=== PATIENT | female | born 1985 | race Caucasian/White ===

== ENCOUNTER 2016-09-09 09:00 | Emergency (ER) | payer MEDICAID ==
[2016-09-09 09:19] VITALS: RESP 18; TEMP 98; O2SAT 97
[2016-09-09] MEDS ORDERED: ONDANSETRON 4 MG/2 ML VIAL ONE (09:32)
[2016-09-09] MEDS ORDERED: ONDANSETRON 4 MG/2 ML VIAL IVP ONE (09:37)
[2016-09-09] MEDS ORDERED: NS 1,000 ML IV ONE ×2 (09:37→10:24)
[2016-09-09 10:07] LABS: % IMMATURE GRANULYOCYTES 0.3 % (0.0-1.1); ABSOLUTE IMMATURE GRANULOCYTES 0.02 10^3/uL (0.00-0.10); ADD DIFF? NO; ADD MORPH? NO; ADD SCAN? NO; ATYPICAL LYMPHOCYTE FLAG 30 (0-99); FRAGMENT RBC FLAG 0 (0-99); HEMATOCRIT 43.4 % (38.0-47.0); HEMOGLOBIN 15.3 g/dL (12.6-16.3); LEFT SHIFT FLG 10 (0-99); LIPEMIA HEMOLYSIS FLAG 90 (0-99); MEAN CELL HEMOGLOBIN 32.4 pg (27.9-34.1); MEAN CELL HEMOGLOBIN CONCENTR. 35.3 g/dL (32.4-36.7); MEAN CELL VOLUME 91.9 fL (81.5-99.8); MEAN PLATELET VOLUME 10.7 fL (8.7-11.7); PLATELET CLUMPS FLAG 0 (0-99); PLATELET COUNT 162 10^3/uL (150-400); RED BLOOD CELL COUNT 4.72 10^6/uL (4.18-5.33); RED CELL DISTRIBUTION WIDTH 12.3 % (11.5-15.2)
[2016-09-09 10:19] LABS: ALANINE AMINOTRANSFERASE 41 IU/L (9-52); ALBUMIN 4.8 g/dL (3.5-5.0); ALKALINE PHOSPHATASE 76 IU/L (38-126); ANION GAP 14 mEq/L (8-16); ASPARTATE AMINOTRANSFERASE 36 IU/L (14-46); BILIRUBIN,TOTAL 1.1 mg/dL (0.1-1.4); CALCIUM 9.8 mg/dL (8.5-10.4); CARBON DIOXIDE 24 mEq/l (22-31); CHLORIDE 98 mEq/L (97-110); CREATININE 0.6 mg/dL (0.6-1.0); GLOMERULAR FILTRATION RATE > 60; GLUCOSE 86 mg/dL (70-100); POTASSIUM 3.8 mEq/L (3.5-5.2); SODIUM 136 mEq/L (134-144); TOTAL PROTEIN 8.3 g/dL (6.3-8.2)
--- NOTE | 2016-09-09 10:24 | UCPHY ---
H & P Time Seen by Provider: 09/09/16 09:07 Patient Type: Established HPI/ROS: 31-year-old female presents complaining of cough nasal congestion, headaches times 4-5 days, she also complains of diarrhea and vomiting for the last 1 day. She smokes daily however has not smoked for the last 5 days. Review of systems As per HPI-cold symptoms, cough, vomiting, diarrhea General no fever no chills no weakness HEENT no eye pain no eye discharge. No eye redness, no sore throat Respiratory positive cough, no shortness of breath Cardiac no chest pain, no peripheral edema GI no abdominal pain, positive diarrhea positive nausea positive vomiting no flank pain, no hematuria, no dysuria Musculoskeletal no myalgias, no joint pain Heme no easy bruising, no easy bleeding Endo no polyuria, no polydipsia Skin no rashes, no pruritus Neuro no syncope, no dizziness, no headaches Psych is no suicidal ideation, no homicidal ideation Past Medical/Surgical History: Migraines ? Seizure disorder Tobacco abuse disorder Social History: Denies drug use, alcohol socially Smoking Status: Current every day smoker Physical Exam: 31-year-old female alert and oriented no acute distress nontoxic appearance afebrile Coarse cough, no wheezing HEENT atraumatic normocephalic, extraocular muscles intact, anicteric Oropharynx negative for erythema negative exudate, tolerating her own secretions Neck supple no meningismus Lungs clear to auscultation bilaterally Heart regular rate and rhythm without murmur rub or gallop Abdomen nondistended normoactive bowel sounds soft nontender Back no CVA tenderness, no step-offs, no spinal tenderness Extremities no cyanosis clubbing or edema Neuro alert and oriented, no focal deficits Constitutional: Initial Vital Signs Temperature (C) 36.6 C 09/09/16 09:16 Heart Rate 88 09/09/16 09:16 Respiratory Rate 18 09/09/16 09:16 Blood Pressure 184/108 H 09/09/16 09:16 O2 Sat (%) 97 09/09/16 09:16 O2 Delivery Mode Room Air Allergies/Adverse Reactions: No Known Allergies Allergy (Unverified 04/09/16 15:56) Home Medications: Medication Instructions Recorded AZITHROMYCIN [Z-PACK] 250 mg PO DAILY #6 tab 09/09/16 Benzonatate [Tessalon Pearles (RX)] 200 mg PO TID PRN #30 cap 09/09/16 Ondansetron Odt [Zofran Odt 4 mg 4 mg PO Q4 PRN #10 tab 09/09/16 (*)] traZODone 09/09/16 Medical Decision Making ED Course/Re-evaluation: Patient seen and evaluated for cough cold nausea vomiting diarrhea. Chest x-ray negative Labs within normal limits Patient given IV fluids and ondansetron with marked relief of her nausea able to tolerate p.o. Differential diagnosis URI, bronchitis, pneumonia, gastroenteritis, viral syndrome Impression Bronchitis Gastroenteritis Dehydration Plan Discharge home with prescription for azithromycin, Tessalon Perles, ondansetron Follow up with primary care physician - Data Points Laboratory Results: Laboratory Results 09/09/16 09:30 09/09/16 09:30 09/09/16 09/09/16 10:45 09:30 WBC 8.00 10^3/uL (3.80-9.50) RBC 4.72 10^6/uL (4.18-5.33) Hgb 15.3 g/dL (12.6-16.3) Hct 43.4 % (38.0-47.0) MCV 91.9 fL (81.5-99.8) MCH 32.4 pg (27.9-34.1) MCHC 35.3 g/dL (32.4-36.7) RDW 12.3 % (11.5-15.2) Plt Count 162 10^3/uL (150-400) MPV 10.7 fL (8.7-11.7) Neut % (Auto) 80.3 H % (39.3-74.2) Lymph % (Auto) 10.9 L % (15.0-45.0) [place] % (Auto) 7.1 % (4.5-13.0) Eos % (Auto) 1.0 % (0.6-7.6) Baso % (Auto) 0.4 % (0.3-1.7) Nucleat RBC Rel Count 0.0 % (0.0-0.2) Absolute Neuts (auto) 6.43 10^3/uL (1.70-6.50) Absolute Lymphs (auto) 0.87 L 10^3/uL (1.00-3.00) Absolute Monos (auto) 0.57 10^3/uL (0.30-0.80) Absolute Eos (auto) 0.08 10^3/uL (0.03-0.40) Absolute Basos (auto) 0.03 10^3/uL (0.02-0.10) Absolute Nucleated RBC 0.00 10^3/uL (0-0.01) Immature Gran % 0.3 % (0.0-1.1) Immature Gran # 0.02 10^3/uL (0.00-0.10) Sodium 136 mEq/L (134-144) Potassium 3.8 mEq/L (3.5-5.2) Chloride 98 mEq/L (97-110) Carbon Dioxide 24 mEq/l (22-31) Anion Gap 14 mEq/L (8-16) BUN 9 mg/dL (7-23) Creatinine 0.6 mg/dL (0.6-1.0) Estimated GFR > 60 Glucose 86 mg/dL (70-100) Calcium 9.8 mg/dL (8.5-10.4) Total Bilirubin 1.1 mg/dL (0.1-1.4) AST 36 IU/L (14-46) ALT 41 IU/L (9-52) Alkaline Phosphatase 76 IU/L (38-126) Total Protein 8.3 H g/dL (6.3-8.2) Albumin 4.8 g/dL (3.5-5.0) Urine Color YELLOW Urine Appearance CLEAR Urine pH 6.5 (5.0-7.5) Ur Specific [place] 1.010 (1.002-1.030) Urine Protein NEGATIVE (NEGATIVE) Urine Ketones 2+ H (NEGATIVE) Urine Blood 2+ H (NEGATIVE) Urine Nitrate NEGATIVE (NEGATIVE) Urine Bilirubin NEGATIVE (NEGATIVE) Urine Urobilinogen 0.2 EU (0.2-1.0) Ur Leukocyte Esterase NEGATIVE (NEGATIVE) Urine RBC 3-5 H /hpf (0-3) Urine WBC 5-10 H /hpf (0-3) Ur Epithelial Cells 2+ H /lpf (NONE-1+) Urine Bacteria TRACE H /hpf (NONE SEEN) Urine Mucus 2+ H /lpf (NONE-1+) Urine Yeast OCCASIONAL H /hpf (NONE SEEN) Ur Culture Indicated? INDICATED H (NI) Urine Glucose NEGATIVE (NEGATIVE) Urine Test NEGATIVE Medications Given: Discontinued Medications Sodium Chloride (Ns) 1,000 mls @ 0 mls/hr IV ONCE ONE PRN Reason: Wide Open Stop: 09/09/16 09:38 Last Admin: 09/09/16 10:09 Dose: 1,000 mls Sodium Chloride (Ns) 1,000 mls @ 0 mls/hr IV ONCE ONE PRN Reason: Wide Open Stop: 09/09/16 10:25 Last Admin: 09/09/16 10:48 Dose: 1,000 mls Ondansetron HCl (Zofran) 4 mg IVP EDNOW ONE Stop: 09/09/16 09:38 Last Admin: 09/09/16 10:10 Dose: 4 mg Departure - Departure Disposition: Home, Routine, Self-Care Clinical Impression: Bronchitis, Gastroenteritis, Dehydration Condition: Good Instructions: Acute Bronchitis (ED), Dehydration (ED), Gastroenteritis (ED) Referrals: hCina LUGO [Primary Care Provider] - As per Instructions [facility] [Provider Group] - As per Instructions Stand Alone Forms: Work Excuse Prescriptions: Benzonatate [Tessalon Pearles (RX)] 200 mg PO TID PRN #30 cap PRN Reason: Cough, Severe AZITHROMYCIN [Z-PACK] 250 mg PO DAILY #6 tab Ondansetron Odt [Zofran Odt 4 mg (*)] 4 mg PO Q4 PRN #10 tab PRN Reason: Nausea/Vomiting, Use 1st - PQRS PQRS Measurement: na
[2016-09-09 10:54] LABS: COLOR YELLOW; LEUKOCYTE ESTERASE,URINE NEGATIVE (NEGATIVE); NITRITE,URINE NEGATIVE (NEGATIVE); PH,URINE 6.5 (5.0-7.5)
--- NOTE | 2016-09-09 10:55 | DX ---
PA and lateral chest History: Cough and body aches for 5 days. Comparison: None available. Findings: The lungs are clear. There is no pneumothorax or pleural effusion. The heart and pulmonar y vasculature are normal. Degenerative changes are present in the spine. Impression: No acute findings in the chest.
[2016-09-09 11:01] LABS: BACTERIA TRACE /hpf (NONE SEEN); MUCUS 2+ /lpf (NONE-1+); YEAST OCCASIONAL /hpf (NONE SEEN)
[2016-09-09 12:12] VITALS: BP 150/65; PULSE 78
== END 2016-09-09 12:10 | disposition home or self-care (01) ==
LOC: CED 09:00
DX: J40 Bronchitis, not specified as acute or chronic (principal); K52.9 Noninfective gastroenteritis and colitis, unspecified; E86.0 Dehydration; F17.210 Nicotine dependence, cigarettes, uncomplicated
CPT/HCPCS: 71020-PO; 80053-PO; 81003-PO; 81015-PO; 81025-PO; 85025-PO; 96361-PO; 96374-PO; 99215-PO; G0463-PO; J2405